=== PATIENT | female | born 1995 | race American Indian/Alaskan Native ===

== ENCOUNTER 2021-10-26 10:51 | Emergency (ER) | payer SELFPAY ==
[2021-10-26] MEDS ORDERED: ONDANSETRON 4 MG/2 ML INJ IV ONE (12:17)
[2021-10-26] MEDS ORDERED: SODIUM CHLORIDE 0.9% 1000 ML 1,000 ML IV ONE (12:17)
--- NOTE | 2021-10-26 12:23 | Emergency Department Report ---
ED Abdominal Pain HPI - General Chief Complaint: Nausea/Vomiting/Diarrhea Stated Complaint: N/V/D Time Seen by Provider: 10/26/21 12:09 Source: patient Mode of arrival: Stretcher Limitations: No Limitations - History of Present Illness Initial Comments: Patient is 26 years old female with no significant past medical history. Patient was brought to the emergency room [place] from airport for evaluation of sudden onset of nausea, vomiting and epigastric abdominal pain. Patient stated that she was traveling from [facility] however she was drinking alcohol before she was boarded on the plane. She said she never had any issue like this before with alcohol. Patient denied any fever or chills. No chest pain or shortness of breath. MD Complaint: abdominal pain -: This morning Location: epigastric Radiation: back Migration to: no migration Quality: sharp Associated Symptoms: nausea, vomiting - Related Data Previous Rx's Medication Instructions Recorded Last Taken Type Esomeprazole Magnesium [NexIUM] 40 mg PO QDAY #10 capsule. 10/26/21 Unknown Rx Ondansetron [Zofran Odt] 4 mg PO Q8HR PRN #14 tab.rapdis 10/26/21 Unknown Rx metroNIDAZOLE [Flagyl] 500 mg PO Q12HR #14 tab 10/26/21 Unknown Rx Allergies Allergy/AdvReac Type Severity Reaction Status Date / Time No Known Allergies Allergy Verified 10/26/21 11:52 ED Review of Systems ROS: Stated complaint: N/V/D Other details as noted in HPI Comment: All other systems reviewed and negative Constitutional: denies: chills, fever Respiratory: denies: cough, shortness of breath, SOB with exertion, SOB at rest Cardiovascular: denies: chest pain, palpitations Gastrointestinal: abdominal pain, nausea, vomiting. denies: diarrhea, constipation, hematemesis, melena, hematochezia Musculoskeletal: denies: back pain Neurological: denies: headache, weakness, numbness, paresthesias, confusion, abnormal gait Psychiatric: denies: depression, homicidal thoughts, suicidal thoughts ED Past Medical Hx - Past Medical History Previous Medical History?: No - Social History Smoking Status: Current Every Day Smoker Substance Use Type: Marijuana - Medications Home Medications: Home Medications Medication Instructions Recorded Confirmed Last Taken Type Esomeprazole Magnesium [NexIUM] 40 mg PO QDAY #10 capsule. 10/26/21 Unknown Rx Ondansetron [Zofran Odt] 4 mg PO Q8HR PRN #14 tab.rapdis 10/26/21 Unknown Rx metroNIDAZOLE [Flagyl] 500 mg PO Q12HR #14 tab 10/26/21 Unknown Rx ED Physical Exam - General Limitations: No Limitations General appearance: alert, in no apparent distress, other (Dry heaving.) - Head Head exam: Present: atraumatic, normocephalic, normal inspection - ENT ENT exam: Present: mucous membranes dry - Neck Neck exam: Present: normal inspection, full ROM. Absent: tenderness, meningismus - Respiratory Respiratory exam: Present: normal lung sounds bilaterally - Cardiovascular Cardiovascular Exam: Present: regular rate, normal rhythm, normal heart sounds - GI/Abdominal GI/Abdominal exam: Present: soft, normal bowel sounds. Absent: distended, tend erness, guarding, rebound, rigid, organomegaly, mass, bruit, pulsatile mass, hernia - Extremities Exam Extremities exam: Present: normal inspection, full ROM, normal capillary refill. Absent: tenderness - Back Exam Back exam: Present: normal inspection, full ROM. Absent: CVA tenderness (R), CVA tenderness (L) - Neurological Exam Neurological exam: Present: alert, oriented X3, CN II-XII intact, normal gait, reflexes normal. Absent: motor sensory deficit - Psychiatric Psychiatric exam: Present: normal mood. Absent: homicidal ideation, suicidal ideation - Skin Skin exam: Present: warm, dry, intact, normal color ED Course Vital Signs 10/26/21 10/26/21 11:48 11:54 Temperature 98.9 F O2 Sat by Pulse 100 Oximetry ED Medical Decision Making - Lab Data Result diagrams: 10/26/21 12:49 10/26/21 12:17 - Medical Decision Making Patient is 26 years old female with no significant past medical history. Patient was brought to the emergency room via EMS from airport for evaluation of sudden onset of nausea, vomiting and epigastric abdominal pain. Patient stated that she was traveling from [facility] however she was drinking alcohol before she was boarded on the plane. She said she never had any issue like this before with alcohol. Patient denied any fever or chills. No chest pain or shortness of breath. Patient received Zofran, Protonix and normal saline. Patient stated that she is feeling much better and her pain and nausea completely resolved. Labs reviewed and is unremarkable. Patient given prescription for Zofran and Nexium and advised to follow-up with her primary doctor in the next 2 to 3 days for further management and to return to the ER if she develop any new symptoms. Patient is stated that she just received a call from her primary care physician informing her that she had trichomonas. I added Flagyl to her prescription and advised her to follow-up with her primary doctor for further management. Critical care attestation.: If time is entered above; I have spent that time in minutes in the direct care of this critically ill patient, excluding procedure time. ED Disposition Clinical Impression: Acute abdominal pain, Acute nausea with nonbilious vomiting, Alcoholic gastritis, Trichomonas vaginalis infection Disposition: HOME / SELF CARE / HOMELESS Is pt being admited?: No Condition: Stable Instructions: Gastritis, Adult, [id number], Abdominal Pain, Adult, Nausea and Vomiting, Adult, [id number] Prescriptions: metroNIDAZOLE [Flagyl] 500 mg PO Q12HR #14 tab Esomeprazole Magnesium [NexIUM] 40 mg PO QDAY #10 capsule. Ondansetron [Zofran Odt] 4 mg PO Q8HR PRN #14 tab.rapdis PRN Reason: Nausea And Vomiting Referrals: PRIMARY CARE, [Primary Care Provider] - 3-5 Days
[2021-10-26 12:51] LABS: Basophils # (Auto) 0.1 K/mm3 (0.0-0.1); Basophils % (Auto) 0.5 % (0.0-1.8); Hematocrit 36.9 % (30.3-42.9); Hemoglobin 12.4 gm/dl (10.1-14.3); Lymphocytes # (Auto) 0.8 K/mm3 (1.2-5.4); Lymphocytes % (Auto) 7.8 % (13.4-35.0); Mean Corpuscular HGB Conc 34 % (30-34); Mean Corpuscular Volume 91 fl (79-97); Monocytes # (Auto) 0.5 K/mm3 (0.0-0.8); Monocytes % (Auto) 4.3 % (0.0-7.3); Platelet Count 274 K/mm3 (140-440); Red Blood Count 4.07 M/mm3 (3.65-5.03); Red Cell Distribution Width 13.7 % (13.2-15.2)
[2021-10-26 12:59] LABS: Alanine Aminotransferase 29 units/L (7-56); Albumin 4.9 g/dL (3.9-5); Blood Urea Nitrogen 9 mg/dL (7-17); Calcium 9.2 mg/dL (8.4-10.2); Hemolysis Index 4
[2021-10-26 13:20] LABS: BUN/Creatinine Ratio 13; Bilirubin,Direct < 0.2 mg/dL (0-0.2)
[2021-10-26] MEDS ORDERED: PANTOPRAZOLE 40 MG INJ IV ONE (13:28)
== END 2021-10-26 17:34 | disposition home or self-care (01) ==
LOC: ED 10:51
DX: K29.20 Alcoholic gastritis without bleeding (principal); R10.13 Epigastric pain; R11.2 Nausea with vomiting, unspecified; A59.01 Trichomonal vulvovaginitis; F17.290 Nicotine dependence, other tobacco product, uncomplicated
CPT/HCPCS: 36415; 80048; 80076; 83690; 84703; 85025; 96361; 96374; 96375; 99283; C9113; J2405; J7030